=== PATIENT | male | born 1980 ===

== ENCOUNTER 2017-09-12 10:58 | Emergency (ER) | payer OTHER, SELFPAY ==
[2017-09-12 10:58] VITALS: BMI 29.5
[2017-09-12 11:14] VITALS: TEMP 98.1
--- NOTE | 2017-09-12 12:30 | C.PDOC ---
History Of Present Illness 37 yo male w/PMHx of lower back pain, come in for evaluation of gradual onset of lower back pain " muscle spasm" since yesterday after lean forward to poultry picker something from floor. Pt reports, ' after that was unable to get up straight back due to back pain". Pt sts, pain is localized over lower back, non- radiating and worse with movement. Otherwise, pt denies known direct trauma or injury, fever, chills, abd. pain, N/V, UTI sx, saddle anesthesia, incontinence, denies weakness, sensory or vascular deficits to B/L lEs. Ambulate to ED, appear sin pain. Time Seen by Provider: 09/12/17 11:41 Chief Complaint (Nursing): Back Pain History Per: Patient Onset/Duration Of Symptoms: Gradual Past Medical History Reviewed: Historical Data, Nursing Documentation, Vital Signs Vital Signs: Last Vital Signs Temp 98.1 F 09/12/17 11:13 Pulse 75 09/12/17 11:13 Resp 18 09/12/17 11:13 BP 114/72 09/12/17 11:13 Pulse Ox 99 09/12/17 11:13 - Medical History PMH: Hypercholesterolemia Surgical History: Appendectomy Family History: States: No Known Family Hx - Social History Hx Tobacco Use: No Hx Alcohol Use: No Hx Substance Use: No - Immunization History Hx Tetanus Toxoid Vaccination: No Hx Influenza Vaccination: No Hx Pneumococcal Vaccination: No Review Of Systems Except As Marked, All Systems Reviewed And Found Negative. Constitutional: Negative for: Fever ENT: Negative for: Throat Pain Gastrointestinal: Negative for: Nausea, Vomiting, Abdominal Pain, Diarrhea, Constipation, Melena, Hematochezia Genitourinary: Negative for: Dysuria, Incontinence, Penile Discharge Musculoskeletal: Positive for: Back Pain. Negative for: Neck Pain Skin: Negative for: Bruising Neurological: Negative for: Weakness, Numbness Physical Exam - Physical Exam Appears: Well, Non-toxic, No Acute Distress Skin: Normal Color, Warm, Dry, No Rash, No Ecchymosis Head: Normacephalic Eye(s): bilateral: PERRL Nose: No Flaring Neck: Supple Gastrointestinal/Abdominal: Soft, No Tenderness, No Distention, No Guarding, No Rebound, No Hernia Back: No CVA Tenderness, No Vertebral Tenderness, Paraspinal Tenderness ( DIFFUSE LUMBAR WITH PARASPINAL MUSCLE SPASM.), Straight Leg Raising (B/L at 40 degrees) Extremity: Normal ROM, No Pedal Edema, No Deformity, No Swelling Neurological/Psych: Oriented x3, Normal Speech, Normal Motor, Normal Sensation, Normal Reflexes ED Course And Treatment O2 Sat by Pulse Oximetry: 99 Pulse Ox Interpretation: Normal Progress Note: On re-evaluation, pt is afebrile, hemodynamicaly stable. non- toxic. Ambulatory in ED with stable gait. neck: Supple. Abd: SOft, NT/ND. Back: (-) CVA tenderness. neurologicaly intact. Pt has clinical findings c/w paraspinal lumbar strain. Pt advised. ref. to f/u swith PMD in 2-3 days for re -eval. return to ED if anyw orsening or new changes. Disposition Counseled Patient/Family Regarding: Diagnosis, Need For Followup, Rx Given - Disposition Referrals: [facility] [Outside] Disposition: HOME/ ROUTINE Disposition Time: 12:28 Condition: STABLE Additional Instructions: NO HEAVY LIFTING, BENDING FORWARD OR ANY PHYSICAL ACTIVITY FOR 1-2 WEEKS TAKE MEDICATION PRESCRIBED FOLLOW UP WITH PMD IN 2-3 DAYS FOR RE-EVALUATION. RETURN TO ED IF ANY WORSENING OR NEW CHANGES. Prescriptions: Methocarbamol [Robaxin] 500 mg PO TID #14 tab Prednisone [Deltasone] 40 mg PO DAILY #6 tablet traMADol [Ultram] 50 mg PO TID #7 tab Instructions: Low Back Pain in Adults, Lumbar Muscle Strain Print Language: SLOVAK - Clinical Impression Clinical Impression: Low back strain
[2017-09-12 12:45] VITALS: BP 114/76; PULSE 78; RESP 20; O2SAT 100
== END 2017-09-12 12:45 | disposition home or self-care (01) ==
LOC: C.ER 10:58
DX: S39.012A Strain of muscle, fascia and tendon of lower back, initial encounter (principal); X58.XXXA Exposure to other specified factors, initial encounter; E78.00 Pure hypercholesterolemia, unspecified
CPT/HCPCS: 96372; 99283; J1885

== ENCOUNTER 2018-03-03 17:47 | Emergency (ER) | payer SELFPAY ==
[2018-03-03 18:13] VITALS: BMI 24.7
--- NOTE | 2018-03-03 20:03 | C.PDOC ---
History Of Present Illness 37 y/o male presents to the emergency department complaining of SOB for the past 2 days that has been worsening over the past week. Patient states he feels like he does not get enough air; he is currently speaking in complete sentences. Denies prolong sitting, recent trips, chest pain, nausea, or vomiting. Time Seen by Provider: 03/03/18 20:02 Chief Complaint (Nursing): Shortness Of Breath History Per: Patient History/Exam Limitations: no limitations Onset/Duration Of Symptoms: Days Current Symptoms Are (Timing): Still Present Initiating Event: Other (not known) Exacerbating Factor(s): Other (none) Current Respiratory Medications: See Home Med List Severity: Moderate Pain Scale Rating Of: 4 Associated Symptoms: denies: Fever, Chills, Chest Pain, Other (Nausea, vomiting) Recent travel outside of the [place]: No Past Medical History Reviewed: Historical Data, Nursing Documentation, Vital Signs Vital Signs: Last Vital Signs Temp 98.1 F 03/03/18 22:17 Pulse 114 H 03/03/18 22:17 Resp 22 03/03/18 22:17 BP 112/59 L 03/03/18 22:17 Pulse Ox 95 03/03/18 22:17 - Medical History PMH: Hypercholesterolemia Surgical History: Appendectomy Family History: States: No Known Family Hx - Social History Hx Tobacco Use: No Hx Alcohol Use: No Hx Substance Use: No - Immunization History Hx Tetanus Toxoid Vaccination: No Hx Influenza Vaccination: No Hx Pneumococcal Vaccination: No Review Of Systems Constitutional: Negative for: Fever, Chills Cardiovascular: Negative for: Chest Pain, Palpitations Respiratory: Positive for: Shortness of Breath Gastrointestinal: Negative for: Nausea, Vomiting, Diarrhea Neurological: Negative for: Weakness, Numbness Physical Exam - Physical Exam Appears: Non-toxic Skin: Warm, Dry Head: Normacephalic Eye(s): bilateral: Normal Inspection Oral Mucosa: Moist Neck: Trachea Midline, Supple Chest: Symmetrical, No Tenderness Cardiovascular: Rhythm Regular, No Murmur Respiratory: No Rales, No Rhonchi, No Wheezing Gastrointestinal/Abdominal: Soft, No Tenderness Neurological/Psych: Oriented x3 Gait: Steady ED Course And Treatment - Laboratory Results Result Diagrams: 03/03/18 20:09 03/03/18 20:01 ECG: Interpreted By Me, Viewed By Me ECG Rhythm: Sinus Rhythm (93), Nonspecific Changes O2 Sat by Pulse Oximetry: 96 (RA) Pulse Ox Interpretation: Normal - Radiology CXR: Interpreted by Me, Viewed By Me CXR Interpretation: No: Infiltrates, Fracture, Pnemothorax Progress Note: Blood work, chest x-ray, and ECG ordered. Duoneb administered. Reevaluation Time: 22:30 Reassessment Condition: Improved Medical Decision Making Medical Decision Making: Upon provider reevaluation patient is feeling better, is medically stable, and requires no further treatment in the ED at this time. Patient will be discharged home with Rx for albuterol, prednisone . Counseling was provided and all questions were answered regarding diagnosis and need for follow up with the referred clinic. There is agreement to discharge plan. Return if symptoms persist or worsen. Disposition Counseled Patient/Family Regarding: Studies Performed, Diagnosis, Need For Followup, Rx Given - Disposition Referrals: [facility] [Outside] [facility] [Outside] Disposition: HOME/ ROUTINE Disposition Time: 20:02 Condition: FAIR Additional Instructions: Please return if symptoms recur Prescriptions: Albuterol HFA [Ventolin HFA 90 mcg/actuation (8 g)] 2 puff IH [id number] PRN #1 puff PRN Reason: Wheezing Prednisone [Deltasone] 20 mg PO DAILY #5 tablet Instructions: Asthma, Adult (DC) Forms: [employer] (Telugu) - Clinical Impression Clinical Impression: Reactive airway disease - Scribe Statement The provider has reviewed the documentation as recorded by the Scribe Therese Carvalho Provider Attestation: All medical record entries made by the Scribe were at my direction and personally dictated by me. I have reviewed the chart and agree that the record accurately reflects my personal performance of the history, physical exam, medical decision making, and the department course for this patient. I have also personally directed, reviewed, and agree with the discharge instructions and disposition.
[2018-03-03 20:13] LABS: BASO # 0.2 K/uL (0.0-0.2); BASO % 1.1 % (0.0-2.0); EOS # 1.2 K/uL (0.0-0.7); EOS % 8.9 % (0.0-4.0); LYMPH # 2.3 K/uL (1.0-4.3); LYMPH % 16.4 % (20.0-40.0); MEAN CORPUSCULAR HEMOGLOBIN 31.3 pg (27.0-31.0); MEAN CORPUSCULAR HGB CONC 35.1 g/dL (33.0-37.0); MEAN PLATELET VOLUME 7.5 fL (7.2-11.7); MONO % 7.1 % (0.0-10.0); NEUT # 9.2 K/uL (1.8-7.0); NEUT % 66.5 % (50.0-75.0); NRBC % 0.1 % (0.0-2.0); RBC 5.12 Mil/uL (4.40-5.90); RED CELL DISTRIBUTION WIDTH 12.6 % (11.5-14.5)
[2018-03-03 20:14] LABS: MEAN CELL VOLUME 89.1 fL (80.0-94.0); WHITE BLOOD COUNT 13.8 K/uL (4.8-10.8)
[2018-03-03 20:23] LABS: ARTERIAL BLOOD GAS HCO3 24.8 mmol/L (21-28); ARTERIAL BLOOD GAS O2 SAT 97.7 % (95-98); ARTERIAL BLOOD GAS PCO2 36 mm/Hg (35-45); ARTERIAL BLOOD GAS PH 7.43 (7.35-7.45); ARTERIAL BLOOD GAS PO2 72 mm/Hg (80-100)
[2018-03-03 20:29] LABS: ALB/GLOB RATIO 1.5 (1.0-2.1); ALBUMIN 4.8 g/dL (3.5-5.0); ALT/SGPT 70 U/L (21-72); AST/SGOT 43 U/L (17-59); BLOOD UREA NITROGEN 10 mg/dL (9-20); CALCIUM 9.8 mg/dl (8.6-10.4); GFR AFRICAN-AMERICAN > 60; GFR NON-AFRICAN AMERICAN > 60
[2018-03-03 20:48] LABS: INR 1.1; PARTIAL THROMBOPLASTIN TIME 37 SECONDS (21-34); PROTHROMBIN TIME 12.4 SECONDS (9.7-12.2)
[2018-03-03 20:49] LABS: D DIMER < 200 ng/mlDDU (0-243)
[2018-03-03] MEDS: Albuterol-Ipratrop 3 mg / 0.5 (3 ml) UD IH SCH (21:27)
[2018-03-03] MEDS ORDERED: Albuterol-Ipratrop 3 mg / 0.5 (3 ml) UD ONE (21:35)
[2018-03-03 22:18] VITALS: BP 112/59; PULSE 114; RESP 22; TEMP 98.1
[2018-03-03 22:33] VITALS: O2SAT 96
--- NOTE | 2018-03-04 10:11 | RAD ---
Date of service: 03/03/2018 HISTORY: Shortness of breath COMPARISON: 05/17/2015 FINDINGS: LUNGS: No focal infiltrate or effusion. Persistent small nodular density/calcified granuloma at right lung base. PLEURA: No significant pleural effusion identified, no pneumothorax apparent. CARDIOVASCULAR: Normal. OSSEOUS STRUCTURES: No significant abnormalities. VISUALIZED UPPER ABDOMEN: Normal. OTHER FINDINGS: None. IMPRESSION: No focal infiltrate or effusion. Persistent small nodular density/calcified granuloma at right lung base.
--- NOTE | 2018-03-04 12:01 | CARD ---
APPROVED REPORT Date of service: 03/03/2018 EKG Measurement Heart [id number] <Conclusion> Normal sinus rhythm with sinus arrhythmia Normal ECG
== END 2018-03-03 22:44 | disposition home or self-care (01) ==
LOC: C.ER 17:47
DX: J45.909 Unspecified asthma, uncomplicated (principal); E78.00 Pure hypercholesterolemia, unspecified
CPT/HCPCS: 71045; 80053; 82803; 83880; 84484; 85025; 85378; 85610; 85730; 93005; 94640; 96374; 99285; J2930